=== PATIENT | male | born 1945 | race African-American/Black ===

== ENCOUNTER 2021-03-25 10:25 | Emergency (ER) | payer OTHER ==
[~2021-03-25] VITALS: Ht 177.8 cm; Wt 84.3 kg
--- NOTE | 2021-03-25 11:14 | REP ---
INDICATION: DYSPNEA/COUGH. COMPARISON: None. TECHNIQUE: AP upright view FINDINGS: 6 mm noncalcified nodule right lower lobe. One year follow-up recommended. Lungs otherwise clear. Heart is slightly enlarged. No failure or effusion. Mediastinum unremarkable. Chronic rotator cuff tear right shoulder. IMPRESSION: 6 mm noncalcified nodule right lower lobe. No evidence of pneumonia. <Electronically signed by Danny Ga > 03/25/21 [id number]
[2021-03-25 11:46] LABS: EOS # 0.2 10^3/uL (0.0-0.5); EOS % 3.1 % (0.0-3.0); HEMATOCRIT 40.4 % (42.0-52.0); HEMOGLOBIN 13.6 g/dl (13.5-17.5); LYMPH # 0.5 10^3/uL (1.5-5.0); LYMPH % 6.7 % (24.0-44.0); MEAN CORPUSCULAR HEMOGLOBIN 32.3 pg (27.0-33.0); MEAN CORPUSCULAR HGB CONC 33.7 g/dl (32.0-36.5); MONO # 0.6 10^3/uL (0.0-0.8); MONO % 7.6 % (2.0-8.0); NEUTROPHILS # 6.1 10^3/uL (1.5-8.5); NEUTROPHILS % 81.9 % (36.0-66.0); PLATELET COUNT, AUTOMATED 219 10^3/uL (150-450); RED BLOOD COUNT 4.21 10^6/uL (4.30-6.10); WHITE BLOOD COUNT 7.4 10^3/uL (4.0-10.0)
[2021-03-25 12:17] LABS: BLOOD UREA NITROGEN 14 MG/DL (7-18); CARBON DIOXIDE LEVEL 29 MEQ/L (21-32); CHLORIDE LEVEL 107 MEQ/L (98-107); CREATININE FOR GFR 0.91 MG/DL (0.70-1.30); GLOMERULAR FILTRATION RATE > 60.0 (>42); GLUCOSE, FASTING 93 MG/DL (70-100); POTASSIUM SERUM 4.4 MEQ/L (3.5-5.1); SODIUM LEVEL 140 MEQ/L (136-145)
[2021-03-25 12:18] LABS: ALBUMIN 3.7 GM/DL (3.2-5.2); ALT/SGPT 23 U/L (12-78); BILIRUBIN,DIRECT 0.3 MG/DL (0.0-0.2); BILIRUBIN,TOTAL 1.3 MG/DL (0.2-1.0); CALCIUM LEVEL 10.2 MG/DL (8.8-10.2); CPK CREATINE PHOSPHOKINASE 302 U/L (39-308); MB/CK RELATIVE INDEX 0.33 (< OR =4); NT-PRO BNP 221 PG/ML (<450); THYROID STIMULATING HORMONE 0.273 uIU/ML (0.358-3.740); TOTAL PROTEIN 6.8 GM/DL (6.4-8.2); TROPONIN I < 0.02 NG/ML (< 0.10)
[2021-03-25] MEDS ORDERED: COMBIVENT RESPIMAT 100-20MCG INHALER 4GM INH STA (12:53)
[2021-03-25 14:00] VITALS: BP 164/79
[2021-03-25] MEDS ORDERED: COMBAER6 INH (14:22)
[2021-03-25] MEDS ORDERED: PRED10TA2 PO (14:22)
--- NOTE | 2021-03-26 07:03 | ECGEPIP ---
[facility] - ED Test Date: 2021-03-25 Pat Name: MARYJANE MAIN Department: Room: - Gender: Male Condominium Manager: : [id number] Requested By: ENEDINA Ashraf Order Number: [id number] Reading MD: Nirav Metcalf Measurements Intervals [place] Rate: 86 P: 60 CA: 244 QRS: 45 QRSD: 82 T: 76 QT: 324 QTc: 387 Interpretive Statements Sinus rhythm with 1st degree AV block Nonspecific T wave abnormality NO PRIORS FOR COMPARISON Electronically Signed on 03-26-2021 7:03:09 EDT by Nirav Metcalf
== END 2021-03-25 14:54 | disposition home or self-care (01) ==
LOC: M ED 10:25
DX: J20.9 Acute bronchitis, unspecified (principal); B34.8 Other viral infections of unspecified site; I44.0 Atrioventricular block, first degree; R91.1 Solitary pulmonary nodule; E11.9 Type 2 diabetes mellitus without complications; J45.909 Unspecified asthma, uncomplicated; E78.5 Hyperlipidemia, unspecified; Z95.5 Presence of coronary angioplasty implant and graft

== ENCOUNTER → 2021-06-07 | Outpatient (CLI) | payer OTHER ==
[~2021-06-07] MED LIST: COMBAER6 INH; PRED10TA2 PO
--- NOTE | 2021-06-10 16:13 | SLEEPCENT ---
DATE: 06/07/2021 ORDERED BY: Js Yusuf Nocturnal polysomnography was performed for evaluation of sleep physiology in this patient with a history of excessive somnolence and nonrestorative sleep. There was 8 hours and 39 minutes of data reviewed. There was only 137.5 minutes of sleep identified. Sleep latency was prolonged at 169 minutes. REM latency was prolonged at 335.5 minutes. Sleep architecture showed poor progression early in the study. Later in the test sleep was consolidated with one REM cycle. Overall sleep efficiency was reduced at 26.9%. The electrocardiogram showed an underlying sinus rhythm with an average heart rate of 60 beats per minute. Some PVCs were seen. EEG showed normal waveforms for wake and sleep. There were 101 respiratory events identified of 10 seconds in duration or greater for an apnea-hypopnea index of 44.1. The events were obstructive, not exclusive to sleep stage. More frequent, but not exclusive to the supine posture. Arousals from respiratory events occurred 16.6 times per hour, and oxygen desaturations were seen into the 70s. Remaining measures of sleep physiology were normal. IMPRESSION: Obstructive sleep apnea syndrome (G47.33). Apnea-hypopnea index 44.1. RECOMMENDATION: The patient should be encouraged to return to the sleep disorder center for pressure therapy. In the interim, alcohol and sedative avoidance should be practiced and caution exercised during the operation of motor vehicles.
== END ==
LOC: M SLEEP 20:00
PROVIDERS: ATTEND Physician Assistant
DX: G47.33 Obstructive sleep apnea (adult) (pediatric) (principal)